=== PATIENT | female | born 1995 | race African-American/Black ===

== ENCOUNTER 2017-11-11 13:25 | Emergency (ER) | payer MEDICAID, OTHER ==
[~2017-11-11] VITALS: Ht 157.5 cm; Wt 48.0 kg
[~2017-11-11 13:25] MED LIST: ALBU2.5V13
[2017-11-11 13:47] VITALS: BP 114/85
== END 2017-11-11 21:00 | disposition left against medical advice (07) ==
LOC: ER 14:33
DX: R21 Rash and other nonspecific skin eruption (principal); Z53.21 Procedure and treatment not carried out due to patient leaving prior to being seen by health care provider
CPT/HCPCS: 81025